=== PATIENT | female | born 1975 | race Two or more races ===

== ENCOUNTER 2020-11-02 16:14 | Inpatient (IN) | payer MEDICAID ==
[~2020-11-02] VITALS: Ht 167.6 cm; Wt 62.6 kg
[2020-11-02] MEDS ORDERED: SODIUM CHLORIDE 0.9% 1,000 ML IV ONE (16:45)
[2020-11-02 17:05] LABS: BG BASE EXCESS 5.5 mmol/L (-2.0-2.0); BG CARBOXYHEMOGLOBIN 0.5 % (0.5-1.5); BG DEOXYHEMOGLOBIN 2.3 % (0.0-5.0); BG FRACTION INSPIRED OXYGEN 21; BG HCO3 ACT 25.8 mmol/L (22.0-26.0); BG METHEMOGLOBIN 0.3 % (0.0-1.5); BG OXYGEN SATURATION 97.7 % (92.0-98.5); BG OXYHEMOGLOBIN 96.9 % (94.0-97.0); BG PCO2 25.7 mmHg (35.0-45.0); BG PH 7.619 (7.350-7.450); BG SAMPLE SITE RIGHT BRACHIAL; BG TOTAL HEMOGLOBIN 12.9 g/dL (12.0-18.0); BG VENT MODE ROOM AIR
[2020-11-02] MEDS ORDERED: ONDANSETRON HCL 4MG/2ML INJ IV ONE (17:15)
[2020-11-02 17:26] LABS: BASOPHILS % 0.7 % (0.0-2.0); HEMATOCRIT. 40.9 % (36.0-48.0); HEMOGLOBIN. 13.8 g/dL (12.0-16.0); LYMPHOCYTES % 37.7 % (20.0-50.0); MEAN CORPUSCULAR HEMOGLOBIN 29.3 pg (28.0-32.0); MEAN CORPUSCULAR VOLUME 86.5 fL (81.0-99.0); MEAN PLATELET VOLUME 6.9 fl (7.4-10.4); MONOCYTES % 7.3 % (2.0-8.0); NEUTROPHILS % 53.3 % (40.0-76.0); PLATELET 567 x1000/uL (130-400); RED BLOOD CELL COUNT 4.73 mill/uL (4.2-5.4)
[2020-11-02 17:30] LABS: CHLORIDE 99 mEq/L (98-107)
[2020-11-02 17:33] LABS: D-DIMER 1.61 mg/L FEU (<0.50); PROTHROMBIN TIME 10.9 sec (9.6-11.0)
[2020-11-02 17:36] LABS: ETHANOL BLOOD < 10 mg/dL
[2020-11-02 17:38] LABS: BETA HYDROXYBUTYRATE 0.7 mMol/L (0.0-0.3)
[2020-11-02] MEDS ORDERED: AZITHROMYCIN 500 MG in DEXT 5% WATER 250 ML IV STA (19:15)
[2020-11-02 19:26] LABS: CLARITY URINE CLEAR (CLEAR); COLOR URINE YELLOW (YELLOW); KETONES URINE TRACE (NEGATIVE); LEUKOCYTE ESTERASE URINE NEGATIVE (NEGATIVE); NITRITE URINE NEGATIVE (NEGATIVE); OCCULT BLOOD URINE NEGATIVE (NEGATIVE); PH URINE 8.5 (4.5-8.0); PROTEIN URINE NEGATIVE (NEGATIVE); SPECIFIC GRAVITY URINE 1.006 (1.005-1.030); UROBILINOGEN URINE 0.2 E.U./dL (0.2-1.0)
[2020-11-02 19:51] LABS: *AMPHETAMINES SCREEN URINE NEGATIVE (NEGATIVE); *BARBITURATES SCREEN URINE NEGATIVE (NEGATIVE); *BENZODIAZEPINES SCREEN URINE NEGATIVE (NEGATIVE); *COCAINE SCREEN URINE NEGATIVE (NEGATIVE); CANNABINOID URINE SCREEN NEGATIVE (NEGATIVE); PHENCYCLIDINE URINE SCREEN NEGATIVE (NEGATIVE)
[2020-11-02 19:52] LABS: METHADONE URINE SCREEN NEGATIVE (NEGATIVE); OPIATES URINE SCREEN NEGATIVE (NEGATIVE)
[2020-11-02] MEDS ORDERED: LORAZEPAM 2MG/ML CPJ IV ONE (20:00)
[2020-11-02 20:41] LABS: HCG SCREEN NEGATIVE
[2020-11-02] MEDS ORDERED: ACETAMINOPHEN 325MG TABLET PO PRN (21:30)
[2020-11-02] MEDS ORDERED: DEXTROSE 50% WATER 50ML SYRINGE IV PRN (21:30)
[2020-11-02] MEDS ORDERED: BENZONATATE 100MG CAPSULE PO PRN (21:30)
[2020-11-02] MEDS ORDERED: INSULIN GLARGINE UD 100 UNITS/ML SYR SUBCUT SCH (22:00)
[2020-11-02] MEDS ORDERED: LEVOFLOXACIN 500MG PREMIX 100 ML IV SCH (22:00)
[2020-11-02] MEDS ORDERED: IOHEXOL-350 100 ML BOTTLE ONE (22:02)
[2020-11-02] MEDS: ENOXAPARIN 40MG/0.4ML SYR SUBCUT SCH (23:12)
[2020-11-02] MEDS: LEVOFLOXACIN 500MG PREMIX 100 ML IV SCH (23:12)
[2020-11-02] MEDS: ONDANSETRON HCL 4MG/2ML INJ IV PRN (23:33)
[2020-11-03] MEDS ORDERED: METOCLOPRAMIDE HCL 10MG/2ML VIAL IV ONE (00:15)
[2020-11-03] MEDS ORDERED: SODIUM CHLORIDE 0.9% 500 ML IV ONE (00:15)
[2020-11-03] MEDS ORDERED: ONDANSETRON HCL 4MG/2ML INJ IV ONE (02:30)
[2020-11-03] MEDS ORDERED: MORPHINE SULFATE 4 MG/ML CPJ (NOT FOR IM USE) IV ONE (02:30)
[2020-11-03] MEDS: INSULIN LISPRO 100 UNITS/ML SUBCUT SCH ×4 (07:00→21:00)
[2020-11-03] MEDS: METOCLOPRAMIDE HCL 10MG/2ML VIAL IV SCH ×2 (12:00→17:56)
[2020-11-03] MEDS ORDERED: POTASSIUM CHLORIDE 20MEQ TABLET SR PO NR (17:30)
[2020-11-03] MEDS: BLOOD SUGAR DIAGNOSTIC STRIP TEST SCH (21:00)
[2020-11-03] MEDS: ONDANSETRON HCL 4MG/2ML INJ IV PRN (21:38)
[2020-11-03] MEDS ORDERED: INSULIN GLARGINE UD 100 UNITS/ML SYR SUBCUT SCH (22:00)
[2020-11-03] MEDS: LORAZEPAM 1MG TABLET PO PRN (22:10)
[2020-11-03] MEDS: LEVOFLOXACIN 500MG PREMIX 100 ML IV SCH (22:30)
[2020-11-04] VITALS: BP_SYST 138; BP_SYST 54; BP_DIAS 41
[2020-11-04] MEDS: METOCLOPRAMIDE HCL 10MG/2ML VIAL IV SCH ×4 (00:05→16:26)
[2020-11-04] MEDS: ENOXAPARIN 40MG/0.4ML SYR SUBCUT SCH ×2 (00:05→22:18)
[2020-11-04 04:00] VITALS: BP 124/76
[2020-11-04] MEDS: BLOOD SUGAR DIAGNOSTIC STRIP TEST SCH ×4 (06:12→21:00)
[2020-11-04 06:26] LABS: CHLORIDE 103 mEq/L (98-107)
[2020-11-04] MEDS: INSULIN LISPRO 100 UNITS/ML SUBCUT SCH ×4 (06:29→22:18)
[2020-11-04 06:34] LABS: BASOPHILS % 0.9 % (0.0-2.0); EOSINOPHILS % 1.2 % (0.0-5.0); HEMATOCRIT. 34.8 % (36.0-48.0); HEMOGLOBIN. 12.1 g/dL (12.0-16.0); LYMPHOCYTES % 34.8 % (20.0-50.0); MEAN CORPUSCULAR VOLUME 86.1 fL (81.0-99.0); MEAN PLATELET VOLUME 7.3 fl (7.4-10.4); MONOCYTES % 6.1 % (2.0-8.0); PLATELET 474 x1000/uL (130-400); RED BLOOD CELL COUNT 4.04 mill/uL (4.2-5.4); RED CELL DISTRIBUTION WIDTH 13.2 % (11.6-14.6)
[2020-11-04 08:00] VITALS: BP 147/76
[2020-11-04] MEDS ORDERED: POTASSIUM CHLORIDE 20MEQ TABLET SR PO NR (08:15)
[2020-11-04 16:00] VITALS: BP 145/73
[2020-11-04] MEDS: INSULIN GLARGINE UD 100 UNITS/ML SYR SUBCUT SCH ×2 (16:26→22:19)
[2020-11-04 20:00] VITALS: BP 153/73
[2020-11-04] MEDS: LORAZEPAM 1MG TABLET PO PRN (22:17)
[2020-11-04] MEDS: LEVOFLOXACIN 500MG PREMIX 100 ML IV SCH (22:17)
[2020-11-05] VITALS: BP 140/66
[2020-11-05] MEDS: METOCLOPRAMIDE HCL 10MG/2ML VIAL IV SCH ×3 (00:22→12:31)
[2020-11-05 04:00] VITALS: BP 118/77
[2020-11-05] MEDS: INSULIN LISPRO 100 UNITS/ML SUBCUT SCH ×2 (06:29→12:30)
[2020-11-05] MEDS: BLOOD SUGAR DIAGNOSTIC STRIP TEST SCH ×2 (06:29→12:09)
[2020-11-05 07:42] LABS: CHLORIDE 106 mEq/L (98-107)
[2020-11-05 08:00] VITALS: BP 126/81
[2020-11-05] MEDS: INSULIN GLARGINE UD 100 UNITS/ML SYR SUBCUT SCH (09:20)
[2020-11-05] MEDS ORDERED: METO-293 MT (11:52)
[2020-11-05] MEDS ORDERED: LANTUSUD SUBCUT (11:52)
[2020-11-05] MEDS ORDERED: METF-416 MT (11:53)
[2020-11-05 12:00] VITALS: BP 137/69
[2020-11-05] MEDS ORDERED: POTASSIUM CHLORIDE 20MEQ TABLET SR PO NR (12:00)
[2020-11-05 15:26] VITALS: BP 137/69
[2020-11-05] MEDS ORDERED: LEVOFLOXACIN 500MG TABLET PO SCH (16:00)
== END 2020-11-05 16:10 | disposition home or self-care (01) | DRG 137 ==
LOC: ER 16:14 → MICUSO 20:25 → EDBEDREQTM 20:55 → EDBEDREQ 20:55 → 8WST 11-03 22:06
PROVIDERS: ADMIT Internal Medicine; ATTEND Internal Medicine
DX: U07.1 COVID-19 (principal); E11.43 Type 2 diabetes mellitus with diabetic autonomic (poly)neuropathy; E44.0 Moderate protein-calorie malnutrition; E11.65 Type 2 diabetes mellitus with hyperglycemia; E87.2 Acidosis; E87.6 Hypokalemia; I10 Essential (primary) hypertension; K31.84 Gastroparesis; Z68.22 Body mass index [BMI] 22.0-22.9, adult; Z88.0 Allergy status to penicillin; Z86.16 Personal history of COVID-19
CPT/HCPCS: 36415; 36600; 71045; 71275; 74177; 80048; 80053; 80305; 80320; 81003; 82010; 82375; 82550; 82728; 82805; 82962; 83036; 83605; 83615; 83735; 83880; 84145; 84484; 84703; 85025; 85379; 85384; 86140; 87635; 93005; 99291; J0456; J1650; J1815; J1956; J2060; J2270; J2405; J2765; J7030; J7040; J7060; Q9967; G0480